=== PATIENT | female | born 1985 | race Caucasian/White ===

== ENCOUNTER 2016-11-17 20:09 | Emergency (ER) | payer SELFPAY ==
[~2016-11-17] VITALS: Ht 157.5 cm; Wt 72.6 kg
[2016-11-17 20:10] VITALS: BP 153/77
--- NOTE | 2016-11-17 20:11 | NUR ---
BIBA TO ER BED 6
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
[2016-11-17] MEDS ORDERED: ACETAMINOPHEN EXTRA STRENGTH 500 MG TAB PO ONE (20:25)
[2016-11-17] MEDS ORDERED: LORazepam 1 MG TAB PO ONE (21:35)
[2016-11-17] MEDS ORDERED: LORazepam 2 MG/ML VIAL IM ONE (21:35)
[2016-11-17 22:08] VITALS: BP 122/86
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
== END 2016-11-17 22:08 ==
LOC: MED 20:09
DX: S00.33XA Contusion of nose, initial encounter (principal); V40.5XXA Car driver injured in collision with pedestrian or animal in traffic accident, initial encounter; Y04.8XXA Assault by other bodily force, initial encounter; Y93.89 Activity, other specified; Y92.89 Other specified places as the place of occurrence of the external cause; Y99.8 Other external cause status
CPT/HCPCS: 70160; 71010; 96372; 99284; J2060